=== PATIENT | female | born 1955 | race Caucasian/White ===

== ENCOUNTER 2017-09-05 12:17 | Outpatient (CLI) | payer BC ==
--- NOTE | 2017-09-05 13:45 | MMO ---
BILATERAL SCREENING MAMMOGRAM: Date: 09/05/17 INDICATION: Annual exam. COMPARISON: Prior exam dated 06/03/15 and 02/18/14. FINDINGS: Interpretation of this exam was assisted with computer-aided detection. There is architectural distortion and added focal asymmetry seen within the outer aspect of the post erior left breast on the CC projection only. This may be related to an underlying skin fold within t he outer aspect of the left breast on the CC projection. Breast parenchyma demonstrates scattered fibroglandular elements. There are benign-appearing calcifi cations bilaterally. IMPRESSION: BIRADS 0: Incomplete: Need Additional Imaging Evaluation and/or Prior Mammograms for Comparison There is a focal asymmetry within the outer aspect of the left breast seen on the CC projection only which may be artifactual in nature. Repeat left breast CC projection with left CCXL projection is a lso recommended. Ultrasound may be necessary for further evaluation. The facility will notify the patient of the need for additional imaging services. POS: [facility]
== END 2017-09-05 12:18 | disposition home or self-care (01) ==
LOC: MAMMO 12:17
PROVIDERS: ATTEND Family Medicine
DX: Z12.31 Encounter for screening mammogram for malignant neoplasm of breast (principal)
CPT/HCPCS: 77067; G0202

== ENCOUNTER 2017-09-29 09:17 | Outpatient (CLI) | payer BC ==
--- NOTE | 2017-09-29 10:22 | MMO ---
LEFT DIAGNOSTIC MAMMOGRAM: DATE: 09/29/17 HISTORY: Focal asymmetric density. Abnormal screening mammography. Additional views. COMPARISON: 09/05/17, 06/03/15, and 02/18/14. FINDINGS: Scattered fibroglandular densities and benign-appearing calcifications are again demonstrated. The f ocal asymmetry deep within the lateral aspect on the CC and XCC view show no underlying mass or spic ulation. IMPRESSION: BIRADS 2: Benign Finding(s) Suggest routine mammographic follow-up. POS: [facility]
== END 2017-09-29 09:18 | disposition home or self-care (01) ==
LOC: MAMMO 09:17
PROVIDERS: ATTEND Family Medicine
DX: R92.2 Inconclusive mammogram (principal)
CPT/HCPCS: G0206-LT

== ENCOUNTER 2019-08-10 09:58 | Outpatient (CLI) | payer BC ==
--- NOTE | 2019-08-10 11:14 | MMO ---
Bilateral MAMMO Bilat Screen [facility]. CLINICAL HISTORY: Patient is 63 years old and is seen for screening. The patient has no family history of breast cancer. The patient has no personal history of cancer. VIEWS: The views performed were: bilateral craniocaudal with tomosynthesis and bilateral mediolateral oblique with tomosynthesis. FILMS COMPARED: The present examination has been compared to prior imaging studies performed at [facility] on 02/18/2014, 06/03/2015, 09/05/2017 and 09/29/2017. This study has been interpreted with the assistance of computer-aided detection. MAMMOGRAM FINDINGS: There are scattered fibroglandular densities. There are stable benign appearing calcifications seen in both breasts. There are no suspicious masses, calcifications or areas of architectural distortion. There are no suspicious masses, suspicious calcifications, or new areas of architectural distortion. IMPRESSION: THERE IS NO MAMMOGRAPHIC EVIDENCE OF MALIGNANCY. A ROUTINE FOLLOW-UP MAMMOGRAM IN 1 YEAR IS RECOMMENDED. THE RESULTS OF THIS EXAM WERE SENT TO THE PATIENT. ACR BI-RADS Category 2 - Benign finding MAMMOGRAPHY NOTE: 1. A negative mammogram report should not delay a biopsy if a dominant of clinically suspicious mass is present. 2. Approximately 10% to 15% of breast cancers are not detected by mammography. 3. Adenosis and dense breasts may obscure an underlying neoplasm. Reported by: ABIGAIL BARRETT MD Electonically Signed: [id number]
== END 2019-08-10 09:59 | disposition home or self-care (01) ==
LOC: BICMAMMO 09:58
PROVIDERS: ATTEND Family Medicine
DX: Z12.31 Encounter for screening mammogram for malignant neoplasm of breast (principal)
CPT/HCPCS: 77063; 77067

== ENCOUNTER 2023-06-30 09:15 | Outpatient (CLI) | payer BC | END 2023-06-30 09:16 | disposition home or self-care (01) | LOC: BICMAMMO 09:15 | PROVIDERS: ATTEND Family Medicine | DX: Z13.820 Encounter for screening for osteoporosis (principal); M85.851 Other specified disorders of bone density and structure, right thigh; M85.852 Other specified disorders of bone density and structure, left thigh; Z78.0 Asymptomatic menopausal state | CPT/HCPCS: 77080 ==

== ENCOUNTER 2024-06-05 15:46 | Outpatient (CLI) | payer BC | END 2024-06-05 15:47 | disposition home or self-care (01) | LOC: SCSRAD 15:46 | PROVIDERS: ATTEND Family Medicine | DX: M79.604 Pain in right leg (principal) ==